=== PATIENT | male | born 1950 | race Caucasian/White ===

== ENCOUNTER 2022-06-28 14:57 | Emergency (ER) | payer OTHER ==
[~2022-06-28] VITALS: Ht 175.3 cm; Wt 89.5 kg
[2022-06-28 15:57] VITALS: BP 113/69
[2022-06-28] MEDS ORDERED: methylPREDNISolone SOD SUCC 125 MG/2 ML VL IM ONE (20:45)
[2022-06-28] MEDS ORDERED: KETOROLAC TROMETH 60MG/2ML VIAL IM ONE (20:45)
[2022-06-28] MEDS ORDERED: IBUP800T26 PO (21:01)
[2022-06-28] MEDS ORDERED: CYCL-839 PO (21:01)
== END 2022-06-28 21:20 | disposition home or self-care (01) ==
LOC: ER 14:57
DX: M54.50 Low back pain, unspecified (principal); M62.830 Muscle spasm of back; R94.31 Abnormal electrocardiogram [ECG] [EKG]
CPT/HCPCS: 72100; 93005; 96372; 99284; J1885; J2930